=== PATIENT | female | born 1995 | race Caucasian/White ===

== ENCOUNTER 2017-10-06 06:56 | Inpatient (IN) | payer OTHER ==
[~2017-10-06] VITALS: Ht 162.6 cm; Wt 63.5 kg
[~2017-10-06 06:56] MED LIST: CEFTIN500 MG PO; URIN D.S. TABLE1 TAB PO
[2017-10-07] MEDS ORDERED: CODE1TAB37 PO (07:57)
== END 2017-10-07 08:52 | DRG 743 ==
LOC: CIR.AMB 06:56 → O/R 13:26 → OB/GYN 16:29
PROVIDERS: Obstetrics & Gynecology
PROC: 0UB14ZZ Excision of Left Ovary, Percutaneous Endoscopic Approach (ICD-10-PCS; principal; 2017-10-06 13:15)
DX: N83.292 Other ovarian cyst, left side (principal)